=== PATIENT | female | born 1950 | race Hispanic/Latino ===

== ENCOUNTER 2023-06-29 10:24 | Emergency (ER) | payer OTHER ==
[~2023-06-29] VITALS: Ht 152.4 cm; Wt 53.1 kg
[2023-06-29] MEDS: 0.9%NACL 1000ML 1,000 ML IV ONE (11:28)
[2023-06-29] MEDS: KETOROLAC 15MG/ML VIAL (15MG/ML) IV ONE (11:28)
[2023-06-29 11:32] LABS: APPEARANCE,URINE CLEAR (CLEAR); BILIRUBIN,URINE NEGATIVE (NEGATIVE); COLOR,URINE COLORLESS (YELLOW); GLUCOSE, URINE (UA) NEGATIVE (NEGATIVE); KETONES,URINE NEGATIVE (NEGATIVE); LEUKOCYTE ESTERASE ,URINE NEGATIVE Leu/uL (NEGATIVE); NITRATE,URINE NEGATIVE (NEGATIVE); OCCULT BLOOD,URINE NEGATIVE (NEGATIVE); PH,URINE 5.5 (5.0-8.0); PROTEIN,URINE NEGATIVE (NEGATIVE); UROBILINOGEN,URINE 0.2 mg/dL (0.2-1.0)
[2023-06-29 11:34] LABS: ADD UA MICROSCOPIC NO
[2023-06-29 11:35] LABS: BASOPHILS # (AUTO) 0.03 K/uL (0.00-0.20); BASOPHILS % (AUTO) 0.7 % (0.0-5.0); HEMATOCRIT 35.1 % (36-48); IMMATURE GRANULOCYTE ABSOLUTE 0.01 K/uL (0-1); LYMPHOCYTES % (AUTO) 22.1 % (21.0-51.0); MEAN CORPUSCULAR HEMOGLOBIN 30.1 pg (27.0-33.0); MEAN CORPUSCULAR HGB CONC 34.8 g/dL (32.0-36.0); MEAN CORPUSCULAR VOLUME 86.7 fL (79-99); MONOCYTES # (AUTO) 0.3 K/uL (0.1-1.0); MONOCYTES % (AUTO) 7.1 % (3.0-13.0); NEUTROPHILS % (AUTO) 69.9 % (40.0-77.0); PLATELET COUNT (AUTO) 150 K/uL (130-400); RED BLOOD CELL COUNT(AUTO) 4.05 MIL/uL (4.00-5.50); RED CELL DISTRIBUTION WIDTH 12.5 % (11.0-15.5); WHITE BLOOD COUNT (AUTO) 4.3 K/uL (4.8-10.8)
[2023-06-29 11:46] LABS: CREATININE 0.8 mg/dL (0.5-1.0); POTASSIUM 4.1 mmol/L (3.5-5.1)
[2023-06-29 11:51] LABS: ALBUMIN 3.8 g/dL (3.5-5.0); BILIRUBIN,TOTAL 0.5 mg/dL (0.2-1.0); TOTAL PROTEIN, SERUM 6.7 g/dL (6.0-8.3)
[2023-06-29 13:56] VITALS: BP 138/75; PULSE 82; RESP 18; O2SAT 99
== END 2023-06-29 14:16 | disposition home or self-care (01) ==
LOC: EDH 10:24
DX: S39.012A Strain of muscle, fascia and tendon of lower back, initial encounter (principal); E86.0 Dehydration; E03.9 Hypothyroidism, unspecified; E78.00 Pure hypercholesterolemia, unspecified; I10 Essential (primary) hypertension; Z90.49 Acquired absence of other specified parts of digestive tract; Z90.710 Acquired absence of both cervix and uterus; X58.XXXA Exposure to other specified factors, initial encounter; Y93.89 Activity, other specified; Y92.89 Other specified places as the place of occurrence of the external cause; Y99.8 Other external cause status
CPT/HCPCS: 99285; 74176; 96374; 96361; 80053; 85025; 81003; 36415; J7030; J1885

== ENCOUNTER 2023-10-01 09:44 | Emergency (ER) | payer OTHER ==
[~2023-10-01] VITALS: Ht 149.9 cm; Wt 54.4 kg
[2023-10-01] MEDS: LACTATED RINGERS 1000ML 1,000 ML IV ONE (10:24)
[2023-10-01 10:31] LABS: BASOPHILS # (AUTO) 0.04 K/uL (0.00-0.20); BASOPHILS % (AUTO) 0.8 % (0.0-5.0); EOSINOPHILS # (AUTO) 0.06 K/uL (0.00-0.70); EOSINOPHILS % (AUTO) 1.2 % (0.0-8.0); HEMATOCRIT 38.4 % (36-48); IMMATURE GRANULOCYTE ABSOLUTE 0.02 K/uL (0-1); LYMPHOCYTES # (AUTO) 1.1 K/uL (1.0-4.8); LYMPHOCYTES % (AUTO) 22.7 % (21.0-51.0); MEAN CORPUSCULAR HGB CONC 32.8 g/dL (32.0-36.0); MEAN CORPUSCULAR VOLUME 91.4 fL (79-99); MONOCYTES # (AUTO) 0.4 K/uL (0.1-1.0); MONOCYTES % (AUTO) 7.5 % (3.0-13.0); NEUTROPHILS # (AUTO) 3.3 K/uL (1.8-7.7); NEUTROPHILS % (AUTO) 67.4 % (40.0-77.0); PLATELET COUNT (AUTO) 180 K/uL (130-400); RED CELL DISTRIBUTION WIDTH 13.3 % (11.0-15.5); WHITE BLOOD COUNT (AUTO) 4.9 K/uL (4.8-10.8)
[2023-10-01 10:45] LABS: CREATININE 0.8 mg/dL (0.5-1.0); POTASSIUM 4.6 mmol/L (3.5-5.1)
[2023-10-01 11:04] LABS: APPEARANCE,URINE CLEAR (CLEAR); BILIRUBIN,URINE NEGATIVE (NEGATIVE); COLOR,URINE COLORLESS (YELLOW); GLUCOSE, URINE (UA) NEGATIVE (NEGATIVE); KETONES,URINE NEGATIVE (NEGATIVE); LEUKOCYTE ESTERASE ,URINE NEGATIVE Leu/uL (NEGATIVE); NITRATE,URINE NEGATIVE (NEGATIVE); OCCULT BLOOD,URINE NEGATIVE (NEGATIVE); PROTEIN,URINE NEGATIVE (NEGATIVE); UROBILINOGEN,URINE 0.2 mg/dL (0.2-1.0)
[2023-10-01 11:28] LABS: ADD UA MICROSCOPIC NO
[2023-10-01] MEDS ORDERED: DICY10 PO (11:46)
[2023-10-01] MEDS ORDERED: PANT40TA55 PO (11:46)
[2023-10-01 11:59] VITALS: BP 146/69; PULSE 64; RESP 18; O2SAT 99
== END 2023-10-01 12:32 | disposition home or self-care (01) ==
LOC: EDH 09:44
DX: A08.4 Viral intestinal infection, unspecified (principal); E86.0 Dehydration; E03.9 Hypothyroidism, unspecified; E78.00 Pure hypercholesterolemia, unspecified; I10 Essential (primary) hypertension; Z88.0 Allergy status to penicillin; Z90.49 Acquired absence of other specified parts of digestive tract; Z90.710 Acquired absence of both cervix and uterus; Z98.890 Other specified postprocedural states
CPT/HCPCS: 99284; 96360; 82550; 84484; 80048; 83690; 85025; 81003; 36415; 93005; J7120

== ENCOUNTER → 2024-04-05 | Outpatient (CLI) | payer OTHER ==
[~2024-04-05] MED LIST: DICY10 PO; PANT40TA55 PO
--- NOTE | 2024-04-07 14:45 | HMCSR ---
APPROVED REPORT EXAM: Two-dimensional and M-mode echocardiogram with Doppler and color Doppler. INDICATION ICD: R01.1 Cardiac murmur, unspecified 2D Dimensions RVDd3.0 cmLVEF(%)60.3 (>50%)LVED Vol(simp.)73.0 mL IVSd0.8 (0.7-1.1cm)FS(%)32 %LVES Vol(simp.)31.0 mL LVDd4.4 (3.8-5.6cm)Ao Root(2D)3.1 (2.0-3.7cm)LVEF(%, simp.)58 % PWd0.8 (0.7-1.1cm)LVOT diam2.0 (1.8-2.4cm)LA ESV INDEX (BP)24.69 mL/m2 LVDs3.0 (2.5-4.0cm)IVC diam1.4 cm Aortic Valve AoV Vmax1.4 m/Aung Peak GR7.6 mmHgLVOT Vmax1.1 m/s AoV VTI0.3 mAo Mean GR3.6 mmHgLVOT VTI0.24 m ALPESH (VMAX)2.2 cm2Al P1/2T503 msAVA (VTI) 2.2 cm2 Mitral Valve MV E Vmax82.0 cm/sDECEL Lcdj206 ms MV A Vmax74.0 cm/sP 1/2 T44 ms E/A ratio1.1MVA (PHT)5.0 cm2 MR Max PG108 mmHg TDI E/E' Wlrtne79.1E/E' Lateral8.6 Pulmonary Valve PV Vmax0.8 m/sPV VTI0.20 mPV Mean GR2 mmHg PV Peak GR2.8 mmHgPI End Chantel. Pritesh 1.0 cm/s Tricuspid Valve TR Vmax2.4 m/sRAP (EST) 3 bqTkRTCD03.1 mmHg TR Peak GR23.1 mmHg Left Ventricle Left ventricular cavity size is normal. There is normal LV segmental wall motion. There is normal lef t ventricular wall thickness. LVEF is 55-60%. Grade 1 diastolic dysfunction Right Ventricle The right ventricle is normal size. The right ventricular systolic function is normal. Atria The left atrium size is normal. The right atrium is mildly dilated. Aortic Valve Aortic valve is trileaflet. Aortic valve leaflets are sclerotic but open well. Mild aortic regurgitat ion. There is no aortic valvular stenosis. Mitral Valve The mitral valve is mildly thickened. Mitral regurgitation is trace to mild. There is no mitral valve stenosis. Tricuspid Valve The tricuspid valve leaflets appear normal. There is trace to mild tricuspid regurgitation. Pulmonic Valve Pulmonic valve is not well visualized. There is mild valvular regurgitation. Great Vessels The aortic root is normal in size. The IVC is normal in size and collapses >50% with inspiration. Pericardium No pericardial effusion. Conclusion LVEF is 55-60%. Grade 1 diastolic dysfunction Mild aortic regurgitation. Mitral regurgitation is trace to mild. There is trace to mild tricuspid regurgitation.
== END | disposition home or self-care (01) ==
LOC: SHCH 11:33
PROVIDERS: ATTEND Internal Medicine Cardiovascular Disease
DX: I08.8 Other rheumatic multiple valve diseases (principal); R01.1 Cardiac murmur, unspecified
CPT/HCPCS: 93306